=== PATIENT | male | born 1960 | race Asian ===

== ENCOUNTER 2017-01-06 10:34 | Day surgery (SDC) | payer OTHER ==
[~2017-01-06] VITALS: Ht 177.8 cm; Wt 79.7 kg
[2017-01-06] VITALS (12 sets, daily range): BP systolic 127–142; BP diastolic 62–87; PULSE 60–89; RESP 16–20; Ht 177.8 cm; Wt 79.7 kg
[~2017-01-06 10:34] MED LIST: LIDOCAINE 2% (SDV) 5 ML INJ ONE; PROPOFOL 200 MG INJ ONE
[2017-01-06] MEDS ORDERED: PROPOFOL 20 ML ONE (12:15)
[2017-01-06] MEDS ORDERED: NEOSTIGMINE 3 MG/3 ML SYRINGE ONE (12:15)
[2017-01-06] MEDS ORDERED: ONDANSETRON 4 MG INJ ONE (12:15)
[2017-01-06] MEDS ORDERED: FENTAnyl 50 MCG/ML VIAL ONE (12:15)
[2017-01-06] MEDS ORDERED: CEFAZOLIN 1 GM INJ ONE (12:15)
[2017-01-06] MEDS ORDERED: MIDAZOLAM 1 MG/ML 2 ML INJ ONE (12:15)
[2017-01-06] MEDS ORDERED: GLYCOPYRROLATE 0.4 MG INJ ONE (12:15)
[2017-01-06] MEDS ORDERED: ROCURONIUM 50 MG INJ ONE (12:15)
[2017-01-06] MEDS ORDERED: DEXAMETHASONE 4 MG/ML 1 ML INJ ONE (12:16)
--- NOTE | 2017-01-06 12:18 | HPN ---
Date/Time of Note Date/Time of Note DATE: 01/06/17 TIME: 12:17 Interval H&P Admission Note Pt. seen H&P reviewed: No system changes MORIAH KENNEDY MD Jan 06, 2017 12:18
[2017-01-06] MEDS ORDERED: IOHEXOL 300MG/ML 30 ML BTL ONE (12:20)
[2017-01-06] MEDS ORDERED: SUGAMMADEX SODIUM 200 MG/2 ML VIAL IV ONE (12:44)
[2017-01-06] MEDS ORDERED: HYDROCODONE/APAP (5/325) TAB PO PRN (13:00)
--- NOTE | 2017-01-06 13:08 | OPR ---
Date/Time of Note Date/Time of Note DATE: 01/06/17 TIME: 13:03 Operative Report Procedure Date: Jan 06, 2017 Preoperative Diagnosis Status post left extracorporeal shockwave lithotripsy and insertion of left ureteral JJ stent for kidney stone Postoperative Diagnosis Status post left extracorporeal shockwave lithotripsy and insertion of left ureteral JJ stent for kidney stone Operation/Procedure Performed Cystoscopy and removal of left ureteral JJ stent Surgeon see signature line Operations Representative None Anesthesia Type: general Anesthesiologist: Prosper Cook M.D. Estimated Blood Loss: none Transfusion none Specimen JJ stent Grafts/Implants none Complications none Pt Condition Post Procedure: stable Disposition: PACU Indications Status post left extracorporeal shockwave lithotripsy and insertion of left ureteral JJ stent for kidney stone Procedure Description The patient was brought to the operating room and general anesthesia was given. The patient was positioned in the lithotomy position. He was given 2 g of Ancef IV at the start of the procedure. Timeout was done, the patient was identified by his name date and the procedure and the side of the procedure. The genital area was then prepped and draped in the usual sterile manner. #21 Swedish cystoscope sheath was introduced under direct vision through the penile urethra all the way to the bladder. The bladder was inspected and appeared to be normal.The distal end of the left ureteral JJ stent was then grasped with the grasper and under fluoroscopy it was pulled out to make sure that the proximal curl did straighten up. The stent was removed intact. The bladder was then emptied and the patient transferred to recovery room in a stable and satisfactory condition MORIAH KENNEDY MD Jan 06, 2017 13:08
--- NOTE | 2017-01-06 14:49 | RADRPT ---
PROCEDURE: Intraoperative imaging of the abdomen and pelvis with fluoroscopy. CLINICAL INDICATION: Left ureteral stent removal. Intraoperative. TECHNIQUE: 3 images of the abdomen and pelvis were obtained in the operating room with an image in tensifier. No radiologist was in attendance. Fluoroscopy time is 10.6 seconds. COMPARISON: No prior study is available for comparison. FINDINGS: Initial images demonstrate a left ureteral stent in satisfactory position. Subsequent image demonstr ates removal of the stent. IMPRESSION: 1. Satisfactory intraoperative imaging of the abdomen and pelvis. RPTAT: QQ .Berny Vela MD, MD Date Time Electronically viewed and signed by .Berny Vela MD, on 01/06/2017 14:49 .R/
== END 2017-01-06 15:15 | disposition home or self-care (01) ==
LOC: SDS 10:34
PROVIDERS: ATTEND Urology
DX: N20.1 Calculus of ureter (principal)
CPT/HCPCS: 52310; 74430; 88300; J0690; J1100; J2250; J2405; J3010; Z7512; Z7610; J2710; Q9967